=== PATIENT | female | born 1945 | race Caucasian/White ===

== ENCOUNTER 2017-07-11 08:41 | Day surgery (SDC) | payer MEDICARE ==
[~2017-07-11 08:41] MED LIST: Cefuroxime 10 MG/ML SYRINGE EYELF SCH; Lidocaine 1% PF 2 ML SDV INJECT SCH; Pilocarpine 4% Ophth Soln 15 ML Bot EYELF SCH; Polymyxin B/Trimethoprim 10 ML Bottle EYELF SCH
[2017-07-11] MEDS: Ofloxacin 0.3% Ophth Soln 5 ML Bottle EYELF SCH ×2 (09:12→09:48)
[2017-07-11] MEDS: Brimonidine 0.2% Ophth Soln 5 ML Bottle EYELF SCH ×3 (09:18→10:57)
[2017-07-11] MEDS: Phenylephrine 2.5% Ophth Soln 2 ML Bot EYELF SCH ×5 (09:23→10:38)
--- NOTE | 2017-07-11 10:18 | PCM.PREANE ---
Preanesthetic Assessment - Anesthesia/Transfusion/Family Hx Anesthesia History: Prior Anesthesia Without Reaction Family History of Anesthesia Reaction: No () Transfusion History: Prior Transfusion Without Reaction - Review of Systems General: No Symptoms Pulmonary: Shortness of Breath (1 month ago and chest tightnes) Cardiovascular: No Symptoms Gastrointestinal: No Symptoms Neurological: No Symptoms Other: Reports: None - Physical Assessment NPO Status Date: 07/10/17 NPO Status Time: 22:00 O2 Sat by Pulse Oximetry: 98 Respiratory Rate: 16 Vital Signs: Last Vital Signs Temp 98.0 F 07/11/17 09:05 Pulse 59 L 07/11/17 09:05 Resp 16 07/11/17 09:05 BP 135/70 07/11/17 09:05 Pulse Ox 98 07/11/17 09:05 Height: 5 ft 2 in Weight: 81.647 kg ASA Class: 2 Mental Status: Alert & Oriented x3 Airway Class: Mallampati = 1 Dentition: Reports: Dentures (upper and lower ) Thyro-Mental Finger Breadths: 3 Mouth Opening Finger Breadths: 3 ROM/Head Extension: Full Lungs: Clear to Auscultation, Normal Respiratory Effort Cardiovascular: Regular Rate, Regular Rhythm - Allergies Allergies/Adverse Reactions: Allergies Allergy/AdvReac Type Severity Reaction Status Date / Time Sulfa (Sulfonamide Allergy Cannot Verified 07/10/17 14:26 Antibiotics) Remember - Blood Blood Available: No - Anesthesia Plan Beta Ana: Metoprolol Med Last Dose Date: 07/11/17 Med Last Dose Time: 07:00 - Acknowledgements Anesthesia Type Planned: MAC Pt an Appropriate Candidate for the Planned Anesthesia: Yes Alternatives and Risks of Anesthesia Discussed w Pt/Guardian: Yes Pt/Guardian Understands and Agrees with Anesthesia Plan: Yes PreAnesthesia Questionnaire Cardiovascular History: Reports: Heart Murmur, Hypertension Respiratory History: Reports: SOB Gastrointestinal History: Reports: GERD - Past Surgical History HEENT Surgical History: Reports: Other (See Below) (ears) GI Surgical History: Reports: Appendectomy, Cholecystectomy - SUBSTANCE USE Smoking Status *Q: Former Smoker (quit december 2016) Tobacco Use Within Last Twelve Months: Cigarettes Second Hand Smoke Exposure: No Days Per Week of Alcohol Use: 0 (social) Recreational Drug Use History: No - HOME MEDS Home Medications: Home Meds Metoprolol Succinate 50 mg PO DAILY 07/10/17 [History] Valsartan [Valsartan] 160 mg PO DAILY 07/10/17 [History] amLODIPine [Norvasc] 5 mg PO DAILY 07/10/17 [History] - CURRENT (IN HOUSE) MEDS Current Meds: Current Medications Brimonidine Tartrate (Alphagan 0.2% Ophth Soln) 0 ml EYELF ASDIRECTED MED Last Admin: 07/11/17 09:52 Dose: 1 drop Cefuroxime Sodium (Zinacef) 10 mg EYELF ASDIRECTED MED Lidocaine HCl (Xylocaine-Mpf 1%) 10 ml INJECT ASDIRECTED MED Ofloxacin (Ocuflox 0.3% Ophth Soln) 0 ml EYELF ASDIRECTED MED Last Admin: 07/11/17 09:48 Dose: 1 drop Phenylephrine HCl (Phil-Synephrine 2.5% Ophth Soln) 0 ml EYELF ASDIRECTED MED Last Admin: 07/11/17 09:57 Dose: 1 drop Pilocarpine HCl (Pilocar 4% Ophth Soln) 0 ml EYELF ASDIRECTED MED Tetracaine HCl (Tetracaine 0.5% Steri-Unit Marce) 0 ml EYELF ASDIRECTED MED Tropicamide (Mydriacyl 1% Ophth Soln) 0 ml EYELF ASDIRECTED MED Stop: 07/14/17 06:01 Last Admin: 07/11/17 10:06 Dose: 1 drop Discontinued Medications Polymyxin/Trimethoprim Sulfate (Polytrim Ophth Soln) 0 ml EYELF ASDIRECTED MED
[2017-07-11] MEDS: Tetracaine HCl/PF 0.5% 4 ML Bottle EYELF SCH ×2 (10:25→10:47)
--- NOTE | 2017-07-11 10:58 | PCM48HPAN ---
Post Anesthesia Note - EVALUATION WITHIN 48HRS OF ANESTHETIC Vital Signs in Normal Range: Yes Patient Participated in Evaluation: Yes Respiratory Function Stable: Yes Airway Patent: Yes Cardiovascular Function Stable: Yes Hydration Status Stable: Yes Pain Control Satisfactory: Yes Nausea and Vomiting Control Satisfactory: Yes Mental Status Recovered: Yes
== END 2017-07-11 11:06 | disposition home or self-care (01) ==
LOC: EDSEX → JD.SDS 08:41
PROVIDERS: ATTEND Ophthalmology
DX: H25.813 Combined forms of age-related cataract, bilateral (principal); H35.3131 Nonexudative age-related macular degeneration, bilateral, early dry stage; H35.363 Drusen (degenerative) of macula, bilateral; H40.003 Preglaucoma, unspecified, bilateral; H53.023 Refractive amblyopia, bilateral; H52.31 Anisometropia; H01.025 Squamous blepharitis left lower eyelid; H01.024 Squamous blepharitis left upper eyelid; H01.022 Squamous blepharitis right lower eyelid; H01.021 Squamous blepharitis right upper eyelid; E78.00 Pure hypercholesterolemia, unspecified; I10 Essential (primary) hypertension; K75.9 Inflammatory liver disease, unspecified; R01.1 Cardiac murmur, unspecified; K21.9 Gastro-esophageal reflux disease without esophagitis; Z87.891 Personal history of nicotine dependence; Z90.49 Acquired absence of other specified parts of digestive tract; Z90.89 Acquired absence of other organs; Z79.899 Other long term (current) drug therapy; Z88.2 Allergy status to sulfonamides
CPT/HCPCS: 66984; J0697; V2632; A9270-GY

== ENCOUNTER 2017-08-15 08:44 | Day surgery (SDC) | payer MEDICARE ==
[2017-08-15] MEDS: Ofloxacin 0.3% Ophth Soln 5 ML Bottle EYERT SCH ×4 (09:41→11:16)
[2017-08-15] MEDS: Brimonidine 0.2% Ophth Soln 5 ML Bottle EYERT SCH ×4 (09:47→11:16)
[2017-08-15] MEDS: Phenylephrine 2.5% Ophth Soln 2 ML Bot EYERT SCH ×6 (09:52→10:59)
--- NOTE | 2017-08-15 09:59 | PCM.PREANE ---
Preanesthetic Assessment - Procedure Proposed Procedure: Right eye cataract with implant - Anesthesia/Transfusion/Family Hx Anesthesia History: Prior Anesthesia Reaction (history of "reaction" unsure what happened 35 years ago. stated she was never told she shouldn't have anesthesia= lots of unknowns with this.) Family History of Anesthesia Reaction: No Transfusion History: Prior Transfusion Without Reaction Intubation History: Unknown - Review of Systems General: No Symptoms Pulmonary: No Symptoms Cardiovascular: Other (HTN, history of tachycardia now on meds for this, " prolapsed heart valve" ) Gastrointestinal: Other (hepatitis dx at 8 years old ) Neurological: No Symptoms Other: Reports: None - Physical Assessment NPO Status Date: 08/14/17 NPO Status Time: 19:30 O2 Sat by Pulse Oximetry: 97 Respiratory Rate: 16 Vital Signs: Last Vital Signs Temp 36.9 C 08/15/17 09:37 Pulse 68 08/15/17 09:37 Resp 16 08/15/17 09:37 BP 128/60 08/15/17 09:37 Pulse Ox 97 08/15/17 09:37 Weight: 81.647 kg ASA Class: 2 Mental Status: Alert & Oriented x3 Airway Class: Mallampati = 1 Dentition: Reports: Dentures (implants to hold ) Thyro-Mental Finger Breadths: 3 Mouth Opening Finger Breadths: 5 - Allergies Allergies/Adverse Reactions: Allergies Allergy/AdvReac Type Severity Reaction Status Date / Time Sulfa (Sulfonamide Allergy Cannot Verified 08/14/17 12:49 Antibiotics) Remember PreAnesthesia Questionnaire Cardiovascular History: Reports: Heart Murmur, Hypertension Respiratory History: Reports: SOB Gastrointestinal History: Reports: GERD - Past Surgical History HEENT Surgical History: Reports: Other (See Below) (ears) GI Surgical History: Reports: Appendectomy, Cholecystectomy - SUBSTANCE USE Smoking Status *Q: Former Smoker (quit december 2016) Tobacco Use Within Last Twelve Months: Cigarettes Second Hand Smoke Exposure: No Days Per Week of Alcohol Use: 0 (social) Recreational Drug Use History: No - HOME MEDS Home Medications: Home Meds Valsartan [Valsartan] 160 mg PO DAILY 07/10/17 [History] amLODIPine [Norvasc] 5 mg PO DAILY 07/10/17 [History] Hydrochlorothiazide [Hydrochlorothiazide] 12.5 mg PO DAILY 08/14/17 [History] - CURRENT (IN HOUSE) MEDS Current Meds: Current Medications Brimonidine Tartrate (Alphagan 0.2% Ophth Soln) 0 ml EYERT ASDIRECTED MED Stop: 08/15/17 18:00 Last Admin: 08/15/17 09:47 Dose: 1 drop Cefuroxime Sodium (Zinacef) 0 mg EYERT ASDIRECTED MED Stop: 08/15/17 18:00 Lidocaine HCl (Xylocaine-Mpf 1%) 10 ml INJECT ASDIRECTED MED Stop: 08/15/17 18:00 Ofloxacin (Ocuflox 0.3% Ophth Soln) 0 ml EYERT ASDIRECTED MED Stop: 08/15/17 18:00 Last Admin: 08/15/17 09:41 Dose: 1 drop Phenylephrine HCl (Phil-Synephrine 2.5% Ophth Soln) 0 ml EYERT ASDIRECTED MED Stop: 08/15/17 18:00 Last Admin: 08/15/17 09:52 Dose: 1 drop Pilocarpine HCl (Pilocar 4% Ophth Soln) 0 ml EYERT ASDIRECTED MED Stop: 08/15/17 18:00 Tetracaine HCl (Tetracaine 0.5% Steri-Unit Marce) 0 ml EYERT ASDIRECTED MED Stop: 08/15/17 18:00 Tropicamide (Mydriacyl 1% Ophth Soln) 0 ml EYERT ASDIRECTED MED Stop: 08/15/17 18:00
[2017-08-15] MEDS: Tetracaine HCl/PF 0.5% 4 ML Bottle EYERT SCH ×3 (10:51→11:06)
[2017-08-15] MEDS: Lidocaine 1% PF 2 ML SDV INJECT SCH ×2 (10:52→11:06)
[2017-08-15] MEDS: Cefuroxime 10 MG/ML SYRINGE EYERT SCH ×2 (10:52→11:15)
[2017-08-15] MEDS: Pilocarpine 4% Ophth Soln 15 ML Bot EYERT SCH ×2 (10:53→11:16)
--- NOTE | 2017-08-15 11:18 | PCM48HPAN ---
Post Anesthesia Note - EVALUATION WITHIN 48HRS OF ANESTHETIC Vital Signs in Normal Range: Yes Patient Participated in Evaluation: Yes Respiratory Function Stable: Yes Airway Patent: Yes Cardiovascular Function Stable: Yes Hydration Status Stable: Yes Pain Control Satisfactory: Yes Nausea and Vomiting Control Satisfactory: Yes Mental Status Recovered: Yes Pulse Rate: 68 SaO2: 97 Resp Rate: 16 Blood Pressure: 148/68
== END 2017-08-15 11:26 | disposition home or self-care (01) ==
LOC: JD.SDS 08:44
PROVIDERS: ATTEND Ophthalmology
DX: H25.811 Combined forms of age-related cataract, right eye (principal); H35.3131 Nonexudative age-related macular degeneration, bilateral, early dry stage; H40.003 Preglaucoma, unspecified, bilateral; H35.363 Drusen (degenerative) of macula, bilateral; I10 Essential (primary) hypertension; K21.9 Gastro-esophageal reflux disease without esophagitis; E78.00 Pure hypercholesterolemia, unspecified; Z87.891 Personal history of nicotine dependence; Z88.2 Allergy status to sulfonamides; Z79.899 Other long term (current) drug therapy; Z96.1 Presence of intraocular lens; Z98.42 Cataract extraction status, left eye; Z90.49 Acquired absence of other specified parts of digestive tract; Z96.22 Myringotomy tube(s) status
CPT/HCPCS: 66984; C1780; J0697; A9270-GY